=== PATIENT | female | born 1945 | race Caucasian/White ===

== ENCOUNTER 2021-12-06 13:56 | Observation (INO) ==
[2021-12-06 14:42] LABS: Basophils # (auto) 0.05 K/uL (0-0.2); Basophils % (auto) 0.7 %; Eosinophils # (auto) 0.23 K/uL (0-0.5); Eosinophils % (auto) 3.2 %; Hematocrit (blood only) 44.5 % (37-47); Hemoglobin 14.7 g/dL (12.0-16.0); Immature Granulocytes # (auto) 0.02 K/uL (0.00-0.02); Immature Granulocytes % (auto) 0.3 %; Lymphocytes # (auto) 1.82 K/uL (1.2-3.4); Lymphocytes % (auto) 25.5 %; Mean Corpuscular Hemoglobin 30.6 pg (25-34); Mean Corpuscular Volume 92.7 fL (80-100); Mean Platelet Volume 11.2 fL (7.4-10.4); Monocytes # (auto) 1.07 K/uL (0.11-0.59); Neutrophils # (auto) 3.95 K/uL (1.4-6.5); Neutrophils % (auto) 55.3 %; Platelet Count 231 K/uL (130-400); RDW Coefficient of Variation 13.6 % (11.5-14.5); RDW Standard Deviation 45.9 fL (36.4-46.3); White Blood Count 7.14 K/uL (4.8-10.8)
--- NOTE | 2021-12-06 15:20 | XRay Report ---
XR chest 2V PA/lateral HISTORY: Atypical Chest Pain COMPARISON: None. FINDINGS: The lungs are clear. Cardiac silhouette is normal in size. No pleural effusions. No pneumot horax. Prior cholecystectomy. IMPRESSION: No acute process. ACT 112: Negative or not required by law. Electronically signed by: Daniel Webb M.D. 12/06/2021 3:18 PM
[2021-12-06 16:23] LABS: Partial Thromboplastin Time 26.7 Seconds (21.0-31.0); Prothrombin Time 10.7 Seconds (9.0-12.0)
[2021-12-06 16:34] LABS: Albumin Globulin Ratio 1.1 (0.9-2); Albumin Level 4.3 gm/dl (3.4-5.0); BUN Creatinine Ratio 24.3 (10-20); Bilirubin,Total 0.5 mg/dl (0.2-1.0); Calcium 9.7 mg/dl (8.5-10.1); Creatinine Clr Calc Pharmacy 58.3 ml/min; Est GFR (African American) 98.9 ml/min; Est GFR (Non-African American) 85.4 ml/min; Globulin 3.8 gm/dl (2.5-4.0); Potassium 4.1 mmol/L (3.5-5.1); Total Protein 8.1 gm/dl (6.0-8.3)
--- NOTE | 2021-12-06 17:16 | Emergency Department Note ---
History of Present Illness General Chief Complaint: Chest Pain Stated Complaint: BURNING CHEST PAIN Time Seen by Provider: 12/06/21 15:24 History of Present Illness Provider Complaint: chest pain Onset (ago): hour(s) 3 Duration: now resolved Onset: during rest Pain Location: substernal and left chest Pain Radiation: none Severity: moderate Current Pain Intensity: 0 Quality: + tightness and + other (burning) Relieved By: + nothing Exacerbated By: + nothing Context: no recent illness, no recent surgery, no recent immobilization, no trauma/injury or no history of DVT/PE Associated symptoms: + diaphoresis and + dyspnea; no nausea, no vomiting, no syncope, no fever or no cough headache. Patient states she has a history of hyperlipidemia and hypertension. Patient states she has never seen a assistant basketball coach before. Her PCP is in [place]. Home Medications Medication Instructions Recorded Confirmed Type bupropion HCl 300 mg 24 hr tablet, 300 mg PO [facility] 12/06/21 12/06/21 History extended release levocetirizine 5 mg tablet 5 mg PO 12/06/21 12/06/21 History losartan 50 mg tablet 50 mg PO [facility] 12/06/21 12/06/21 History metoprolol succinate 50 mg 50 mg PO [facility] 12/06/21 12/06/21 History tablet,extended release 24 hr pantoprazole 40 mg tablet,delayed 40 mg PO [facility] 12/06/21 12/06/21 History release simvastatin 40 mg tablet 40 mg PO 12/06/21 12/06/21 History Allergies Allergy/AdvReac Type Severity Reaction Status Date / Time No Known Allergies Allergy Unverified 12/06/21 17:07 Past Med/Surg History Medical History GERD (gastroesophageal reflux disease) HLD (hyperlipidemia) HTN (hypertension) No pertinent family history Surgical History No pertinent past surgical history Social History Smoking Status: Never smoker Feels Safe at Home: Yes Review of Systems A total of 10 systems reviewed and were otherwise negative Physical Exam Vital Signs Vital Signs - 24 hr 12/06/21 14:04 Temperature 35.7 C L Temperature Source Temporal Artery Scan Pulse Rate 77 Pulse Rhythm Regular Pulse Strength Normal Respiratory Rate 20 Respiratory Effort / Characteristics Non-Labored Respiratory Depth Normal Blood Pressure 180/82 H Blood Pressure Mean 114 Blood Pressure Position Sitting Pulse Oximetry 98 Oxygen Delivery Method Room Air Sepsis Recent Fever Within 48 Hours No Sepsis New/Unexplained Change in Mental Status No Sepsis Action Taken by Nursing No Action Required Physical Exam GENERAL: She is oriented to person, place, and time. She appears well-developed and well-nourished. She does not appear distressed. HENT: Exam performed. -Head: Normocephalic and atraumatic. -Right Ear: External ear normal. No mastoid tenderness. -Left Ear: External ear normal. No mastoid tenderness. -Mouth/Throat: The oropharynx is clear and moist. No trismus in the jaw. No dental abscesses or uvula swelling. No oropharyngeal exudate or tonsillar abscesses. EYES: Conjunctivae and EOM are normal. Pupils are equal, round, and reactive to light. Right eye exhibits no discharge. Left eye exhibits no discharge. No scleral icterus. NECK: Normal range of motion. Neck supple. No JVD present. No spinous process tenderness present. No carotid bruit present. No rigidity. No tracheal deviation and normal range of motion present. No Brudzinski's sign and no Kernig's sign noted. CV: Normal rate, regular rhythm, normal heart sounds and intact distal pulses. There is no peripheral edema. Palpable radial pulses bue. PULM/CHEST: Effort normal and breath sounds normal. No respiratory distress. No stridor. She has no wheezes. She has no rales. -Chest Wall: She exhibits no tenderness. ABD: The abdomen is soft. Bowel sounds are normal. She has no distension. No mass is present. There is no tenderness. There is no rebound, no guarding, no Prieto's sign and no tenderness at McBurney's point. Rovsig negative MUSC/SKEL: Normal range of motion. There is no peripheral edema, tenderness or deformity. LYMPH: No cervical adenopathy. NEURO: She is alert and oriented to person, place, and time. She has normal strength. No cranial nerve deficit or sensory deficit. Coordination and gait normal. GCS eye subscore is 4. GCS verbal subscore is 5. GCS motor subscore is 6. Cerebellar tests wnl. SKIN: Skin is warm and dry. She is not diaphoretic. PSYCH: She has a normal mood and affect. Behavior is normal. Judgment and thought content normal. Course Course 1524: The patient was evaluated in room B6. A complete history and physical exam was performed Cardiac monitoring: An order was placed for continuous cardiac monitoring. The monitor shows a rate of 80 with sinus rhythm 1725: Vital signs stable. Labs and imaging within normal limits. Patient's EKG does show left bundle branch block. Patient states she has never had an appointment with assistant basketball coach and states she has never been told she has left bundle branch block. Patient currently reporting no chest pain. [facility] out ACS. Dr. Hatfield notified. Medical Decision Making Laboratory Data Result diagrams: 12/06/21 14:20 12/06/21 15:43 Labs: Lab Results 12/06/21 12/06/21 12/06/21 Range/Units 14:20 14:20 14:20 WBC 7.14 (4.8-10.8) K/uL RBC 4.80 (4.2-5.4) M/uL Hgb 14.7 (12.0-16.0) g/dL Hct 44.5 (37-47) % MCV 92.7 (80-100) fL MCH 30.6 (25-34) pg MCHC 33.0 (32-36) g/dL RDW Std Deviation 45.9 (36.4-46.3) fL RDW Coeff of Nicole 13.6 (11.5-14.5) % Plt Count 231 (130-400) K/uL MPV 11.2 H (7.4-10.4) fL Immature Gran % (Auto) 0.3 % Neut % (Auto) 55.3 % Lymph % (Auto) 25.5 % Hand % (Auto) 15.0 % Eos % (Auto) 3.2 % Baso % (Auto) 0.7 % Neut # (Auto) 3.95 (1.4-6.5) K/uL Lymph # (Auto) 1.82 (1.2-3.4) K/uL Hand # (Auto) 1.07 H (0.11-0.59) K/uL Eos # (Auto) 0.23 (0-0.5) K/uL Baso # (Auto) 0.05 (0-0.2) K/uL Immature Gran # (Auto) 0.02 (0.00-0.02) K/uL PT Cancelled INR Cancelled APTT Cancelled PTT Ratio Cancelled Sodium Potassium Chloride Carbon Dioxide Anion Gap BUN Creatinine Est Cr Clr Drug Dosing Est GFR ( Amer) Est GFR (Non-Af Amer) BUN/Creatinine Ratio Glucose Calcium Total Bilirubin AST ALT Alkaline Phosphatase Troponin I High Sens 2.4 (0-14) pg/ml Total Protein Albumin Globulin Albumin/Globulin Ratio 12/06/21 12/06/21 12/06/21 Range/Units 14:20 15:43 15:43 WBC (4.8-10.8) K/uL RBC (4.2-5.4) M/uL Hgb (12.0-16.0) g/dL Hct (37-47) % MCV (80-100) fL MCH (25-34) pg MCHC (32-36) g/dL RDW Std Deviation (36.4-46.3) fL RDW Coeff of Nicole (11.5-14.5) % Plt Count (130-400) K/uL MPV (7.4-10.4) fL Immature Gran % (Auto) % Neut % (Auto) % Lymph % (Auto) % Hand % (Auto) % Eos % (Auto) % Baso % (Auto) % Neut # (Auto) (1.4-6.5) K/uL Lymph # (Auto) (1.2-3.4) K/uL Hand # (Auto) (0.11-0.59) K/uL Eos # (Auto) (0-0.5) K/uL Baso # (Auto) (0-0.2) K/uL Immature Gran # (Auto) (0.00-0.02) K/uL PT 10.7 INR 1.0 APTT 26.7 PTT Ratio 1.0 Sodium Cancelled 139 Potassium Cancelled 4.1 Chloride Cancelled 103 Carbon Dioxide Cancelled 29 Anion Gap Cancelled 7 BUN Cancelled 17 Creatinine Cancelled 0.70 Est Cr Clr Drug Dosing Cancelled 58.3 Est GFR ( Amer) Cancelled 98.9 Est GFR (Non-Af Amer) Cancelled 85.4 BUN/Creatinine Ratio Cancelled 24.3 H Glucose Cancelled 115 H Calcium Cancelled 9.7 Total Bilirubin Cancelled 0.5 AST Cancelled 20 ALT Cancelled 22 Alkaline Phosphatase Cancelled 66 Troponin I High Sens (0-14) pg/ml Total Protein Cancelled 8.1 Albumin Cancelled 4.3 Globulin Cancelled 3.8 Albumin/Globulin Ratio Cancelled 1.1 Imaging Data Chest x-ray: Radiologist's impression: Chest X-Ray 12/06/21 14:09 XR chest 2V PA/lateral HISTORY: Atypical Chest Pain COMPARISON: None. FINDINGS: The lungs are clear. Cardiac silhouette is normal in size. No pleural effusions. No pneumothorax. Prior cholecystectomy. IMPRESSION: No acute process. ACT 112: Negative or not required by law. Electronically signed by: Daniel Webb M.D. 12/06/2021 3:18 PM ECG Data Additional Comments: Sinus rhythm with rate of 79. NH 170 QRS 134 QTC 472. Left bundle branch block present. sgarbosa negative. No EKG to compare to previously. MDM Narrative Vital signs stable. Labs and imaging within normal limits. Patient's EKG does show left bundle branch block. Patient states she has never had an appointment with assistant basketball coach and states she has never been told she has left bundle branch block. Patient currently reporting no chest pain. [facility] ACS. Dr. Hatfield notified. Impression & Plan Chest pain, LBBB (left bundle branch block) Discharge Plan Visit Data Chief Complaint: Chest Pain Stated Complaint: BURNING CHEST PAIN Discharge Problem: Chest pain, LBBB (left bundle branch block) Patient Disposition: Admitted As Inpatient Forms Stand Alone Forms: My [facility] Prescriptions Prescriptions: No Action losartan 50 mg tablet 50 mg PO QAM RF: 0 metoprolol succinate 50 mg tablet extended release 24 hr 50 mg PO QAM RF: 0 simvastatin 40 mg tablet 40 mg PO HS RF: 0 pantoprazole 40 mg tablet,delayed release (DR/EC) 40 mg PO QAM RF: 0 bupropion HCl 300 mg tablet extended release 24 hr 300 mg PO QAM RF: 0 levocetirizine 5 mg tablet 5 mg PO HS RF: 0 Referrals Referrals: PCP,NO [Primary Care Provider] -
[2021-12-06] MEDS ORDERED: ASPIRIN 81 MG CHEW PO STA (17:27)
--- NOTE | 2021-12-06 18:11 | History & Physical Report ---
Date of Service December 06, 2021 Assessment & Plan (1) Chest pain: Plan: ASA 324mg PO given in ER, continue 81mg PO daily Repeat troponin 7pm - if elevated will started on heparin low dose IV drip with bolus however this is currently deferred given patient currently not in chest pain or confirmed to be cardiac in nature. If troponins negative overnight will get nuclear Lexiscan due to LBBB on EKG (2) LBBB (left bundle branch block): Plan: No prior EKG to confirm if new but not previously known to patient (3) GERD (gastroesophageal reflux disease): Plan: Continue pantoprazole 40mg PO daily (4) HLD (hyperlipidemia): Plan: Continue simvastatin 40mg HS Lipid panel in AM for CV risk evaluation (5) HTN (hypertension): Plan: Currently significantly hypertensive in the ER. Given possible coronary event will start on 1 inch nitro patch Continue metoprolol succinate 50mg PO daily and losartan 50mg PO daily (6) Allergic rhinitis: Plan: Continue levocetirizine 5mg HS (7) Anxiety: Plan: Continue bupropion 300mg PO daily Plan: VTE Prophylaxis - chemical prophylaxis deferred given likely short duration of stay and possible need for heparin IV drip fi troponins elevated Diet - heart healthy, NPO @ midnight Disposition - observation status to PCU Admission and Anticipated Discharge Date Admission Date: December 06, 2021 History of Present Illness Chief Complaint: Chest pain Primary Care Provider: NO PCP Diana Bryant is a 76 year old female with history of TIA, hypertension, significant smoking exposure and hyperlipidemia who presents to the ER due to chest pain. [place] and she continued to drive to the emergency room. She has not had similar chest pains recently although reports a brief hospitalization over 10 years ago for chest pain with subsequent negative workup. This pain occurred around 2pm and lasted for approximately 5 minutes. Substernal with radiation to her back . Resolved spontaneously and she was chest pain free on coming to the ER. No associated shortness of breath, diaphoresis or nausea. She notes a history of reflux for which she takes pantoprazole however this feeling was different to heartburn. In the ER EKG was concerning for left bundle branch block which was not previously known to the patient. She [place] from out of the area and no prior EKGs are available for comparison. Initial high sensitive troponin was negative. Allergies Allergy/AdvReac Type Severity Reaction Status Date / Time No Known Allergies Allergy Unverified 12/06/21 17:07 Home Medications Medication Instructions Recorded Confirmed Type bupropion HCl 300 mg 24 hr tablet, 300 mg PO QAM 12/06/21 12/06/21 History extended release levocetirizine 5 mg tablet 5 mg PO HS 12/06/21 12/06/21 History losartan 50 mg tablet 50 mg PO QAM 12/06/21 12/06/21 History metoprolol succinate 50 mg 50 mg PO QAM 12/06/21 12/06/21 History tablet,extended release 24 hr pantoprazole 40 mg tablet,delayed 40 mg PO QAM 12/06/21 12/06/21 History release simvastatin 40 mg tablet 40 mg PO HS 12/06/21 12/06/21 History Past Med/Surg History Medical History (Updated 12/06/21 @ 18:20 by Vasile Hatfield MD) Anxiety GERD (gastroesophageal reflux disease) HLD (hyperlipidemia) HTN (hypertension) No pertinent family history Surgical History No pertinent past surgical history Social History Smoking Status: Unknown if ever smoked Second Hand Exposure: Yes; Do You Dip or Chew Tobacco: No; Hx Alcohol Use: Yes Alcohol type: wine Hx Substance Use: No Preferred Language: Swedish Communication Ability: Effective Nursing Department Chairperson Required: No Beliefs That Will Affect Care: None Current Living Situation: Alone Other Information That Helps Us Care for You: No Feels Safe at Home: Yes Safety Concerns: Feels Safe At This Time Assistive Devices: None Review of Systems Review of Systems: All systems reviewed & are unremarkable except as noted in HPI & below Physical Exam Constitutional: WD/WN, vitals as above Eyes: + anicteric sclerae; normal pupil size ENMT: external ear and nose normal, oropharynx normal Neck: trachea midline, no thyromegaly Respiratory: normal respiratory effort, lungs clear to auscultation Cardiovascular: RRR, no murmur, no edema Gastrointestinal (Abdomen): normal bowel sounds, soft, nontender, no hepatosplenomegaly Musculoskeletal: no cyanosis or clubbing, extremities motor strength 5/5 Skin: no rashes, warm and dry Neurologic: moves all extremities and awake; not confused Psychiatric: A+Ox3, euthymic affect Results & Data Results & Data ([facility]) Vital Signs (Past 12 Hours) Vital Signs Temp Pulse Resp BP Pulse Ox 12/06/21 17:30 75 27 H 180/92 H 98 12/06/21 17:00 74 25 H 191/94 H 98 12/06/21 16:30 69 25 H 168/91 H 95 12/06/21 16:11 72 19 174/87 H 98 12/06/21 16:00 72 25 H 97 12/06/21 15:56 76 24 98 12/06/21 14:04 35.7 C L 77 20 180/82 H 98 Diagnostic Findings XR chest 2V PA/lateral HISTORY: Atypical Chest Pain COMPARISON: None. FINDINGS: The lungs are clear. Cardiac silhouette is normal in size. No pleural effusions. No pneumothorax. Prior cholecystectomy. IMPRESSION: No acute process. Medications Administered ER Medications Given: Aspirin 324mg PO ECG Indication: chest pain Rate (beats per minute): 79 Rhythm: normal sinus Findings: + LBBB and + left axis deviation Comparison ECG Date: no prior available Code Status & VTE Plan Code Status Full VTE Prophylaxis Plan VTE Prophylaxis will be ordered: No Reason for no VTE drug order: Treatment not indicated Reason for no VTE mechanical prophylaxis: Treatment not indicated PG Care Time/CCT Total # of Minutes Spent Total Time Spent with Patient: Total time spent is greater than 50% in coordination of care (as documented) at patient's floor/unit and/or counseling patient: Coding Level of Care Code INT OBSERVATION CARE 70M LVL 3 Diagnoses Chest pain R07.9 Chest pain type: unspecified LBBB (left bundle branch block) I44.7 GERD (gastroesophageal reflux disease) K21.9 HLD (hyperlipidemia) E78.5 HTN (hypertension) I10 Allergic rhinitis J30.9 Anxiety F41.9 (1) Chest pain Chest pain type: unspecified Qualified Code(s): R07.9 - Chest pain, unspecified
[2021-12-06] MEDS ORDERED: NITROGLYCERIN 2% OINTMENT 30GM TUBE EXT STA (18:12)
[2021-12-06] MEDS ORDERED: NITROGLYCERIN SL 0.4 MG/TAB TAB SL PRN (20:41)
[2021-12-06] MEDS ORDERED: ACETAMINOPHEN 325 MG TAB PO PRN (20:41)
[2021-12-06] MEDS ORDERED: ONDANSETRON INJ 2 MG/ML 2 ML VIAL IV PRN (20:41)
[2021-12-06] MEDS ORDERED: SIMVASTATIN 40 MG TAB PO SCH (21:00)
[2021-12-06] MEDS ORDERED: CETIRIZINE HCL 10 MG TABLET PO SCH (21:00)
[2021-12-07] MEDS: NITROGLYCERIN 2% OINTMENT 30GM TUBE EXT SCH ×3 (00:03→12:00)
[2021-12-07 04:24] LABS: Basophils # (auto) 0.04 K/uL (0-0.2); Basophils % (auto) 0.6 %; Eosinophils # (auto) 0.25 K/uL (0-0.5); Eosinophils % (auto) 3.7 %; Hematocrit (blood only) 40.2 % (37-47); Hemoglobin 13.4 g/dL (12.0-16.0); Immature Granulocytes # (auto) 0.02 K/uL (0.00-0.02); Immature Granulocytes % (auto) 0.3 %; Lymphocytes # (auto) 2.38 K/uL (1.2-3.4); Lymphocytes % (auto) 35.3 %; Mean Corpuscular Hemoglobin 31.3 pg (25-34); Mean Corpuscular Hgb Conc 33.3 g/dL (32-36); Mean Corpuscular Volume 93.9 fL (80-100); Mean Platelet Volume 10.7 fL (7.4-10.4); Monocytes # (auto) 0.77 K/uL (0.11-0.59); Monocytes % (auto) 11.4 %; Neutrophils # (auto) 3.28 K/uL (1.4-6.5); Neutrophils % (auto) 48.7 %; Platelet Count 210 K/uL (130-400); RDW Coefficient of Variation 13.5 % (11.5-14.5); RDW Standard Deviation 46.4 fL (36.4-46.3); Red Blood Count 4.28 M/uL (4.2-5.4); White Blood Count 6.74 K/uL (4.8-10.8)
[2021-12-07 04:38] LABS: BUN Creatinine Ratio 22.9 (10-20); Calcium 8.9 mg/dl (8.5-10.1); Creatinine Clr Calc Pharmacy 75.4 ml/min; Est GFR (African American) 98.9 ml/min; Est GFR (Non-African American) 85.4 ml/min; Potassium 3.9 mmol/L (3.5-5.1)
[2021-12-07 07:22] LABS: Estimated Average Glucose 128 mg/dl; Hemoglobin A1C 6.1 % (4.5-5.6)
[2021-12-07] MEDS ORDERED: buPROPion XL 300 MG TABCR PO SCH (09:00)
[2021-12-07] MEDS ORDERED: LOSARTAN POTASSIUM 50 MG TAB PO SCH (09:00)
[2021-12-07] MEDS ORDERED: METOPROLOL SUCC 50MG EXT REL TAB PO SCH (09:00)
[2021-12-07] MEDS ORDERED: ASPIRIN 81 MG ECTAB PO SCH (09:00)
[2021-12-07] MEDS ORDERED: PANTOprazole 40 MG TAB PO SCH (09:00)
[2021-12-07] MEDS ORDERED: REGADENOSON 0.4 MG/5 ML SYR IV ONE (13:27)
--- NOTE | 2021-12-07 15:09 | Myocardial Perfusion Study ---
Date of Service December 07, 2021 Myocardial Perfusion Study Blk Myocardial Perfusion Study Report PA Act 112: Negative Procedure: 1. Myocardial perfusion study performed in multiple views/images 2. Lexiscan pharmacologic stress ECG Indications: 1. Chest pain Ordering physician: Vasile Hatfield Procedural details: For the stress portion of the study, Lexiscan 0.4 mg was intravenously administered followed by a saline flush. This was followed by 31.1 mCi of technetium 99m Cardiolite, injected at 1:45 p.m. on 12/07/2021. 30 minutes following the injection, imaging of the heart was performed in multiple projections. For the rest portion of the study, 10.49 mCi technetium 99m Cardiolite was injected intravenously at 11:30 a.m. on 12/07/2021. 1 hour following the injection, imaging of the heart was performed in the same projections. Lexiscan stress ECG: Continuous ECG monitoring was performed with supervision and interpretation. Resting ECG demonstrated: Sinus rhythm 67 bpm. LBBB. Maximum heart rate: 107 bpm Maximal, age-predicted heart rate: 73 % Resting blood pressure: 190/75 mmHg Maximum blood pressure: 190/[address] changes: None Arrhythmia: None Symptoms: Nausea Findings: Rotating raw imaging demonstrated no significant lung uptake. There is no significant motion artifact. Heart size appeared normal. There was significant intestinal uptake notable with stress imaging, which may interfere with interpretation. Myocardial perfusion demonstrated mildly reduced uptake involving the inferior wall which appeared fixed in post stress and rest imaging. There was a small defect involving the distal septum, which was fixed in post stress and rest imaging. There was no significant reversible defect to suggest ischemia. Ejection fraction: 79 % Wall motion: Normal No significant transient ischemic dilation. Impression: 1. Negative myocardial perfusion study for ischemia. 2. Septal defect may be due to left bundle-branch block. 3. Inferior defect likely diaphragmatic attenuation given normal wall motion. 4. Lexiscan induced nausea. 5. Normal wall motion with hyperdynamic systolic function. EF 79%. 6. Indeterminate Lexiscan ECG. [facility] Myocardial perfusion code Procedure Code Procedure 1: Myocardial Perfusion Codes: 67632 Cardiovascular Stress Test, multiple Procedure 2: Myocardial Perfusion Codes: 65785 Cardiovascular Stress Test, supervision only Procedure 3: Myocardial Perfusion Codes: 68996 Cardiovascular Stress Test, interpretation and report
--- NOTE | 2021-12-07 17:40 | XCELERA ---
[id number]
--- NOTE | 2021-12-07 17:51 | Discharge Summary ---
Date of Service December 07, 2021 Admission HPI Per Admitting Provider Diana Bryant is a 76 year old female with history of TIA, hypertension, significant smoking exposure and hyperlipidemia who presents to the ER due to chest pain. [place] and she continued to drive to the emergency room. She has not had similar chest pains recently although reports a brief hospitalization over 10 years ago for chest pain with subsequent negative workup. This pain occurred around 2pm and lasted for approximately 5 minutes. Substernal with radiation to her back . Resolved spontaneously and she was chest pain free on coming to the ER. No associated shortness of breath, diaphoresis or nausea. She notes a history of reflux for which she takes pantoprazole however this feeling was different to heartburn. In the ER EKG was concerning for left bundle branch block which was not previously known to the patient. [place] from out of the area and no prior EKGs are available for comparison. Initial high sensitive troponin was negative. Principal Diagnosis Atypical chest pain Left bundle branch block Discharge Exam Constitutional WD/WN, vitals as above ENMT external ear and nose normal, oropharynx normal Neck trachea midline, no thyromegaly Respiratory normal respiratory effort, lungs clear to auscultation Cardiovascular RRR, no murmur, no edema Gastrointestinal (Abdomen) normal bowel sounds, soft, nontender, no hepatosplenomegaly Musculoskeletal no cyanosis or clubbing, extremities motor strength 5/5 Skin no rashes, warm and dry Neurologic moves all extremities and awake; not confused Psychiatric A+Ox3, euthymic affect Discharge Data Allergies Allergy/AdvReac Type Severity Reaction Status Date / Time No Known Allergies Allergy Unverified 12/06/21 17:07 Consultations 12/06/21 17:24 ED Decision to Admit Stat Hospital Course (1) Chest pain: Diana Bryant is a 76 year old female observed at [facility] from December 06 - 2021 due to an episode of chest pain. Serial high sensitive troponins were negative. EKG showed left bundle branch block (unknown if this is new). Echocardiogram was normal (septal wall motion abnormality only related to left bundle branch block was noted). Myocardial perfusion scan (Lexiscan) was performed due to high risk factors and left bundle branch block on EKG to assess for angina as the cause of your pain. This was subsequently negative for inducible ischemia therefore I do not suspect your pain was cardiac in nature. No specific cause of your chest pain was identified however your blood pressure has been significantly elevated and this alone may cause chest pain. Please follow up with your primary care provider for ongoing management of this. A left bundle branch block was noted on your EKG but not suspected to be caused by a single cardiac event given workup and more likely related to slowly progressive degenerative disease involving the conduction system of your heart most likely from high blood pressure over a long period of time. No other treatment other than blood pressure management needs to be done about this. Other causes of chest pain such as gastrointestinal or musculoskeletal are likely. Given lack of sustained pain, tachycardia (high heart rate), DVT symptoms, shortness of breath or low oxygen I do not suspect a pulmonary embolism. Given history of TIA and ongoing risk factors for cardiovascular disease recommend aspirin 81mg PO daily unless otherwise advised by your primary care physician. Please follow up with your primary care provider for ongoing blood pressure management. If the pain recurs and is persistent beyond a few minutes please return to the ER. (2) LBBB (left bundle branch block): No prior EKG to confirm if new but not previously known to patient (3) GERD (gastroesophageal reflux disease): Continue pantoprazole 40mg PO daily (4) HLD (hyperlipidemia): Continue simvastatin 40mg HS Lipid panel in AM for CV risk evaluation (5) HTN (hypertension): Currently significantly hypertensive in the ER. Given possible coronary event will start on 1 inch nitro patch Continue metoprolol succinate 50mg PO daily and losartan 50mg PO daily (6) Allergic rhinitis: Continue levocetirizine 5mg HS (7) Anxiety: Continue bupropion 300mg PO daily VTE Prophylaxis - chemical prophylaxis deferred given likely short duration of stay and possible need for heparin IV drip fi troponins elevated Diet - heart healthy, NPO @ midnight Disposition - observation status to PCU Discharge Plan Discharge Items Patient Disposition: Home - Self-Care Reason For Visit: CHEST PAIN RULE OUT [place] Discharge Diagnosis: Atypical chest pain Left bundle branch block Activity: Resume your previous activity Non-emergency contact: Primary Care Provider Call non-emergency contact if: you have any medication questions and your symptoms worsen Follow-up/Referrals: PCP,NO [Primary Care Provider] - Diet: Regular Addtl Attending Provider Instructions: You were observed at [facility] from December 06 - 15th, 2022 due to an episode of chest pain. Serial high sensitive troponins (cardiac enzyme) were negative therefore ruling out a heart attack as the cause of your chest pain. Echocardiogram was normal (septal wall motion abnormality related to your left bundle branch block was noted). Myocardial perfusion scan (Lexiscan) was performed due to high risk factors and left bundle branch block on EKG to assess for angina as the cause of your pain. This was subsequently negative for inducible ischemia therefore I do not suspect your pain was cardiac in nature. No specific cause of your chest pain was identified however your blood pressure has been significantly elevated and this alone may cause chest pain. Please follow up with your primary care provider for ongoing management of this. A left bundle branch block was noted on your EKG but not suspected to be caused by a single cardiac event given workup and more likely related to slowly progressive degenerative disease involving the conduction system of your heart most likely from high blood pressure over a long period of time. No other treatment other than blood pressure management needs to be done about this. Other causes of chest pain such as gastrointestinal or musculoskeletal are likely. Given lack of sustained pain, tachycardia (high heart rate), DVT symptoms, shortness of breath or low oxygen I do not suspect a pulmonary embolism. Given history of TIA and ongoing risk factors for cardiovascular disease recommend aspirin 81mg PO daily unless otherwise advised by your primary care physician. Please follow up with your primary care provider for ongoing blood pressure management. If the pain recurs and is persistent beyond a few minutes please return to the ER. Pending Studies at Discharge: No Stand-Alone Forms: My [facility]asy, Smoking Cessation Medications and DC Order Prescriptions: New aspirin 81 mg Tablet,Delayed Release (Dr/Ec) 81 mg PO QAM Qty: 90 RF: 0 Continued losartan 50 mg tablet 50 mg PO QAM RF: 0 metoprolol succinate 50 mg tablet extended release 24 hr 50 mg PO QAM RF: 0 simvastatin 40 mg tablet 40 mg PO HS RF: 0 pantoprazole 40 mg tablet,delayed release (DR/EC) 40 mg PO QAM RF: 0 bupropion HCl 300 mg tablet extended release 24 hr 300 mg PO QAM RF: 0 levocetirizine 5 mg tablet 5 mg PO HS RF: 0 Discharge Orders: Discharge Order (Routine); Ordered 12/07/21 Ordered By: Vasile Edmond/Other Patient Handouts: Prediabetes, Controlling High Blood Pressure, Low-Salt Choices, 5 Steps for Eating Healthier, Hypertension and Kidney Disease, Heart Disease Women, Identifying Your Heart Risks, ED Heart Disease Education Admission Data Admit Date/Time: 12/06/21 18:24 Attending Provider: Vasile Hatfield Admit Provider: Vasile Hatfield Primary Care Provider: PCP,NO Other Providers: Vasile Hatfield Other Interventions: Discharge Summary Assessment (RN) Last Done: 12/07/21 17:57 Coding Diagnoses Chest pain R07.9 Chest pain type: unspecified LBBB (left bundle branch block) I44.7 GERD (gastroesophageal reflux disease) K21.9 HLD (hyperlipidemia) E78.5 HTN (hypertension) I10 Allergic rhinitis J30.9 Anxiety F41.9
--- NOTE | 2021-12-07 21:23 | Electrocardiogram Report ---
Test Reason : Blood Pressure : / mmHG Vent. Rate : 079 BPM Atrial Rate : 079 BPM P-R Int : 170 ms QRS Dur : 134 ms QT Int : 412 ms P-R-T Axes : 017 -38 091 degrees QTc Int : 472 ms Poor data quality, interpretation may be adversely affected Normal sinus rhythm Left axis deviation Left bundle branch block Abnormal ECG No previous ECGs available Confirmed by Michele Galvan ([id number]) on 12/07/2021 9:23:11 PM Referred By: Confirmed By:Michele Galvan
== END 2021-12-07 18:35 | disposition home or self-care (01) ==
LOC: 2S 13:56 → ED 13:56 → 2S 20:33